=== PATIENT | female | born 1995 | race Caucasian/White ===

== ENCOUNTER 2016-08-23 11:40 | Emergency (ER) | payer BC ==
[~2016-08-23] VITALS: Ht 170.2 cm; Wt 68.2 kg
[~2016-08-23 11:40] MED LIST: OCELLA 3 MG-0.01 TAB PO
[2016-08-23 11:46] VITALS: TEMP 99.9
[2016-08-23 12:41] LABS: PH 6 (5-8); SQUAMOUS EPITHELIAL 0-2 /hpf; URINE APPEARANCE Clear; URINE BACTERIA None Seen /hpf; URINE BILIRUBIN Negative (NEGATIVE); URINE BLOOD Negative (NEGATIVE); URINE COLOR Straw; URINE GLUCOSE Negative (NEGATIVE); URINE KETONE Negative (NEGATIVE); URINE RBC 0-2 /hpf; URINE UROBILINOGEN Negative (NEGATIVE); URINE WBC 0-2 /hpf
[2016-08-23 12:51] LABS: ADJUSTED CALCIUM 9.1 mg/dL (8.4-10.2); ALBUMIN 4.4 gm/dL (3.5-5.0); BILIRUBIN,TOTAL 1.2 mg/dL (0.0-1.0); C-REACTIVE PROTEIN 0.6 mg/dL (0.0-0.9); CALCIUM 9.4 mg/dL (8.4-10.2); CREATININE, serum 0.58 mg/dL (0.52-1.25); POTASSIUM 3.7 mmol/L (3.4-5.0); TOTAL PROTEIN 7.8 gm/dL (6.4-8.2)
[2016-08-23 12:58] LABS: BASO % 0.3 % (0.0-2.0); EOS # 0.1 (0.0-0.7); EOS % 0.4 % (0-4.0); GRAN # 8.4 (1.4-6.5); GRAN % 73.2 % (42.2-75.2); HEMATOCRIT 40.1 % (35.0-45.0); LYMPH # 2.1 (1.2-3.4); MEAN CELL VOLUME 89 fl (80.0-95.0); MEAN CORPUSCULAR HEMOGLOBIN 31 pg (26.0-32.0); MEAN CORPUSCULAR HGB CONC 35 g/dl (33.0-37.0); MEAN PLATELET VOLUME 9.2 fl (7.4-10.4); MONO # 0.9 (0.1-0.6); MONO % 7.8 % (1.7-9.3); PLATELET COUNT 217 K/mm3 (130-400); RED BLOOD COUNT 4.52 M/mm3 (4.10-5.30); REDCELL DISTRIBUTION WIDTH-CV 11.9 % (11.5-14.5); WHITE BLOOD COUNT 11.5 K/mm3 (4.8-10.8)
[2016-08-23] MEDS ORDERED: NORCO 325 MG-51 TAB PO (16:14)
[2016-08-23 16:34] VITALS: BP 102/67; PULSE 71
== END 2016-08-23 16:36 | disposition home or self-care (01) ==
LOC: COL.ER 11:40
PROVIDERS: Nurse Practitioner
DX: D27.0 Benign neoplasm of right ovary (principal); R10.31 Right lower quadrant pain
CPT/HCPCS: J2270; J2405; J7030; Q9967

== ENCOUNTER → 2016-08-31 | Outpatient (REF) ==
[~2016-08-31] MED LIST changes: +NORCO 325 MG-51 TAB PO
[2016-08-31 06:08] LABS: BASO % 0.1 % (0.0-2.0); GRAN # 12.5 (1.4-6.5); GRAN % 87.6 % (42.2-75.2); HEMOGLOBIN 12.2 g/dl (12.0-15.0); LYMPH % 7.2 % (20.0-51.0); MEAN CELL VOLUME 91 fl (80.0-95.0); MEAN CORPUSCULAR HEMOGLOBIN 31 pg (26.0-32.0); MEAN CORPUSCULAR HGB CONC 35 g/dl (33.0-37.0); MONO # 0.7 (0.1-0.6); MONO % 4.8 % (1.7-9.3); PLATELET COUNT 190 K/mm3 (130-400); RED BLOOD COUNT 3.91 M/mm3 (4.10-5.30); WHITE BLOOD COUNT 14.3 K/mm3 (4.8-10.8)
[2016-08-31 06:11] LABS: HEMATOCRIT 35.4 % (35.0-45.0)
== END ==
LOC: ZMSC 06:03
PROVIDERS: Obstetrics & Gynecology
DX: Z01.89 Encounter for other specified special examinations (principal)